=== PATIENT | male | born 2000 ===

== ENCOUNTER 2019-09-16 21:37 | Emergency (ER) | payer OTHER ==
[~2019-09-16] VITALS: Ht 175.3 cm; Wt 66.7 kg
[2019-09-17] MEDS ORDERED: KETO10TA2 PO (03:48)
[2019-09-17] MEDS ORDERED: DUI500 PO (03:48)
== END 2019-09-17 03:49 ==
LOC: ER 21:37
DX: N45.1 Epididymitis (principal); N50.82 Scrotal pain; S30.2 Contusion of external genital organs; X58.XXXS Exposure to other specified factors, sequela